=== PATIENT | female | born 1955 | race African-American/Black ===

== ENCOUNTER 2018-03-02 13:11 | Emergency (ER) | payer BC ==
[2018-03-02] MEDS: NORCO, ANEXSIA 5/325MG TABLET (HYDROcodone/ACETAMINOPHEN) PO (17:16)
[2018-03-02] MEDS: KETOROLAC TROMETHAMINE 10 MG TAB PO (17:16)
== END 2018-03-02 18:27 | disposition home or self-care (01) ==
LOC: M ED 13:11
DX: S40.011A Contusion of right shoulder, initial encounter (principal); S20.211A Contusion of right front wall of thorax, initial encounter; W01.0XXA Fall on same level from slipping, tripping and stumbling without subsequent striking against object, initial encounter; Y92.480 Sidewalk as the place of occurrence of the external cause; Z87.81 Personal history of (healed) traumatic fracture; M17.12 Unilateral primary osteoarthritis, left knee; J44.9 Chronic obstructive pulmonary disease, unspecified; Z79.51 Long term (current) use of inhaled steroids; Z79.899 Other long term (current) drug therapy; Z98.890 Other specified postprocedural states; Z88.1 Allergy status to other antibiotic agents; Z88.2 Allergy status to sulfonamides; Z88.8 Allergy status to other drugs, medicaments and biological substances; Z85.118 Personal history of other malignant neoplasm of bronchus and lung
CPT/HCPCS: 71101